=== PATIENT | female | born 1950 | race Caucasian/White ===

== ENCOUNTER 2016-12-29 17:43 | Emergency (ER) | payer OTHER, MEDICARE ==
[2016-12-29 17:49] VITALS: BP 166/64; PULSE 51; TEMP 98; BMI 25.8
--- NOTE | 2016-12-29 18:10 | PDOC ---
History of Present Illness - General History Source: Patient Exam Limitations: No Limitations - History of Present Illness Initial Comments: 12/29/16 18:13 The patient is a 66 year old female, with a significant past medical history of cholestasis, DM, a-fib, HTN, HLD who presents to the emergency department with right 3rd finger pain. The patient reports being an avid bowler and reports last night bowling a lot with the onset of pain when she got home. She reports having decreased ROM in her finger secondary to pain. Patient is right hand dominant. She denies recent fevers, chills, headache or dizziness. She denies recent nausea, vomit, diarrhea or constipation. Allergies: See Nursing Notes Social history: Nonsmoker. Denies EtOH use and recreational drug use. <Jakob Crenshaw - Last Filed: 12/29/16 18:15> <Christophe Kaur - Last Filed: 12/29/16 18:59> - General Chief Complaint: Edema Stated Complaint: SWELLING TO RIGHT 3RD &4TH FINGER Time Seen by Provider: 12/29/16 17:50 Past History <Jakob Crenshaw - Last Filed: 12/29/16 18:15> - Past Medical History Anemia: No Asthma: No Cancer: No Cardiac Disorders: Yes CVA: No COPD: No CHF: No Dementia: No Diabetes: Yes GI Disorders: No Disorders: No HTN: Yes Hypercholesterolemia: Yes Liver Disease: No Seizures: No Thyroid Disease: No - Surgical History Abdominal Surgery: Yes (HERNIA REPAIR) - Immunization History Td Vaccination: No TDAP Vaccination: No Immunization Up to Date: Yes - Psycho/Social/Smoking Cessation Hx Anxiety: No Suicidal Ideation: No Smoking Status: No Smoking History: Never smoked Number of Cigarettes Smoked Daily: 0 Cigars Per Day: 0 Information on smoking cessation initiated: No Hx Alcohol Use: No Drug/Substance Use Hx: No Substance Use Type: None Hx Substance Use Treatment: No <Christophe Kaur - Last Filed: 12/29/16 18:59> - Past Medical History Allergies/Adverse Reactions: Allergies Allergy/AdvReac Type Severity Reaction Status Date / Time peanut Allergy Severe Verified 12/29/16 17:45 penicillin G Allergy Severe Difficulty Verified 12/29/16 17:45 Breathing shellfish derived Allergy Severe Verified 12/29/16 17:45 venom-honey bee Allergy Severe Verified 12/29/16 17:45 [bee venom (honey bee)] Home Medications: Ambulatory Orders Atorvastatin Ca [Lipitor] 10 mg PO HS 08/13/14 Cholecalciferol (Vitamin D3) [Vitamin D3] 4,000 unit PO DAILY 08/13/14 Digoxin [Lanoxin] 125 mcg PO DAILY 08/13/14 FA/Mv,Ca,Iron,Min/Lycopene/Lut [Centrum Tablet] 1 each PO DAILY 08/13/14 Olmesartan/Hydrochlorothiazide [Benicar Hct 40-25 mg Tablet] 1 each PO DAILY 10/26 Pioglitazone HCl [Actos] 30 mg PO DAILY 08/17/15 Amiodarone HCl [Cordarone -] 100 mg PO DAILY #0 08/21/15 Rivaroxaban [Xarelto -] 20 mg PO DAILY #0 08/21/15 Acetaminophen W/ Codeine #3 [Tylenol # 3] 1 - 2 combo PO Q4H PRN #20 tablet MDD 8 12/29/16 Review of Systems - Review of Systems Able to Perform ROS?: Yes Comments:: 12/29/16 18:13 CONSTITUTIONAL: Absent: fever, no chills, no fatigue EYES: Absent: visual changes ENT: Absent: ear pain, no sore throat CARDIOVASCULAR: Absent: chest pain, no palpitations RESPIRATORY: Absent: cough, no SOB GI: Absent: abdominal pain, no nausea, no vomiting, no constipation, no diarrhea GENITOURINARY: Absent: dysuria, no frequency, no hematuria MUSKULOSKELETAL: +finger pain right 3rd. Absent: back pain, no arthralgia, no myalgia SKIN: Absent: rash NEURO: Absent: headache <Jakob Crenshaw - Last Filed: 12/29/16 18:15> *Physical Exam - Vital Signs Last Vital Signs Temp Pulse Resp BP Pulse Ox 98 F 51 L 18 166/64 100 12/29/16 17:44 12/29/16 17:44 12/29/16 17:44 12/29/16 17:44 12/29/16 17:44 - Physical Exam Comments: 12/29/16 18:13 GENERAL: Well-appearing, well-nourished. No apparent distress. HEENT: Normocephalic, atraumatic. PERRL, EOM intact. CARDIOVASCULAR: Normal S1, S2. Regular rate and rhythm. PULMONARY: Clear to auscultation bilaterally. ABDOMEN: Soft, non-distended, non-tender. EXTREMITIES: 3rd finger proximal phalanx swollen, red, and tender over the extensor tendon. No deformity, but the tendon itself is not palpable. Flexetion is intact for both points but extension is lacking. No distal sensory deficits. Good capillary refill. No other signs of trauma to palm or dorsum of the hand or other fingers. SKIN: Warm, dry. No rash NEUROLOGICAL: No focal neurological deficits. <Jakob Crenshaw - Last Filed: 12/29/16 18:15> - Vital Signs Last Vital Signs Temp Pulse Resp BP Pulse Ox 98 F 51 L 18 166/64 100 12/29/16 17:44 12/29/16 17:44 12/29/16 17:44 12/29/16 17:44 12/29/16 17:44 <Christophe Kaur - Last Filed: 12/29/16 18:59> Medical Decision Making - Medical Decision Making 12/29/16 18:36 Patient who was pulling excessively vigorously last night injured her third finger. She is unable to fully straighten it. This suggests an extensor tendon injury or disruption. There is no deformity suggestive of a fracture. X-ray obtained, splint applied, and referred to hand specialist for further treatment. She is made aware that an improperly treated tendon injury results in severe disability and that is very important to her continued function to see a hand specialist and received timely treatment. She seems to understand and agree. 12/29/16 18:59 After splinting, patient is more comfortable, good capillary refill and no distal numbness tingling or pain. Good fingertip motion. Discharged fully ambulatory and in no significant pain or other distress to follow-up with hand specialist in a timely fashion. <Christophe Kaur - Last Filed: 12/29/16 18:59> *DC/Admit/Observation/Transfer - Attestations Scribe Attestion: 12/29/16 18:14 Documentation prepared by Jakob Crenshaw, acting as medical equipment technician for Christophe Cole MD. <Jakob Crenshaw - Last Filed: 12/29/16 18:15> - Discharge Dispostion Admit: No <[email or web address] - Last Filed: 12/29/16 18:59> Diagnosis at time of Disposition: Extensor tendon disruption - Discharge Dispostion Condition at time of disposition: Stable - Prescriptions Prescriptions: Acetaminophen W/ Codeine #3 [Tylenol # 3] 1 - 2 combo PO Q4H PRN #20 tablet MDD 8 PRN Reason: Pain - Referrals Referrals: Cj Stone MD [Staff Physician] - 3 days - Patient Instructions Printed Discharge Instructions: DI for Finger Extensor Tendon Injury Additional Instructions: Rest, ice, pain medication as needed. See hand surgeon as soon as possible for further evaluation. The tendon may have to be repaired surgically to ensure full function. Significant disability and result if healing is not optimal.
== END 2016-12-29 19:04 | disposition home or self-care (01) ==
LOC: FER 17:43
DX: S56.40 Unspecified injury of extensor muscle, fascia and tendon of other and unspecified finger at forearm level (principal); X58.XXXA Exposure to other specified factors, initial encounter; Y93.54 Activity, bowling; Y92.39 Other specified sports and athletic area as the place of occurrence of the external cause; I10 Essential (primary) hypertension; E78.00 Pure hypercholesterolemia, unspecified; E11.9 Type 2 diabetes mellitus without complications; I51.9 Heart disease, unspecified
CPT/HCPCS: 73140-TC-RT; 99281-25

== ENCOUNTER 2017-10-10 04:43 | Emergency (ER) | payer OTHER, MEDICARE ==
[2017-10-10 04:57] VITALS: TEMP 98.4; BMI 27.3
--- NOTE | 2017-10-10 05:04 | PDOC ---
History of Present Illness - General Chief Complaint: Irregular Heart Beat Stated Complaint: ATRIAL FIBRILLATION Time Seen by Provider: 10/10/17 05:02 Past History - Past Medical History Allergies/Adverse Reactions: Allergies Allergy/AdvReac Type Severity Reaction Status Date / Time peanut Allergy Severe Verified 10/10/17 04:45 penicillin G Allergy Severe Difficulty Verified 10/10/17 04:45 Breathing shellfish derived Allergy Severe Verified 10/10/17 04:45 venom-honey bee Allergy Severe Verified 10/10/17 04:45 [bee venom (honey bee)] Home Medications: Ambulatory Orders Atorvastatin Ca [Lipitor] 10 mg PO HS 08/13/14 Cholecalciferol (Vitamin D3) [Vitamin D3] 4,000 unit PO DAILY 08/13/14 FA/Mv,Ca,Iron,Min/Lycopene/Lut [Centrum Tablet] 1 each PO DAILY 08/13/14 Olmesartan/Hydrochlorothiazide [Benicar Hct 40-25 mg Tablet] 1 each PO DAILY 10/26 Pioglitazone HCl [Actos] 30 mg PO DAILY 08/17/15 Amiodarone HCl [Cordarone -] 100 mg PO DAILY #0 08/21/15 Rivaroxaban [Xarelto -] 20 mg PO DAILY #0 08/21/15 Anemia: No Asthma: No Cancer: No Cardiac Disorders: Yes (A FIB) CVA: No COPD: No CHF: No Dementia: No Diabetes: Yes (DIET CONTROLLED) GI Disorders: No Disorders: No HTN: Yes Hypercholesterolemia: Yes Liver Disease: No Seizures: No Thyroid Disease: No - Surgical History Abdominal Surgery: Yes (HERNIA REPAIR) - Immunization History Td Vaccination: No TDAP Vaccination: No Immunization Up to Date: Yes - Suicide/Smoking/Psychosocial Hx Smoking Status: No Smoking History: Never smoked Have you smoked in the past 12 months: No Number of Cigarettes Smoked Daily: 0 Cigars Per Day: 0 Information on smoking cessation initiated: No Hx Alcohol Use: Yes (SOCIAL) Drug/Substance Use Hx: No Substance Use Type: None Hx Substance Use Treatment: No *Physical Exam - Vital Signs Last Vital Signs Temp Pulse Resp BP Pulse Ox 98.4 F 110 H 16 147/61 100 10/10/17 04:53 10/10/17 04:53 10/10/17 04:53 10/10/17 04:53 10/10/17 04:53 *DC/Admit/Observation/Transfer - Referrals Referrals: Oleksandr Solis MD [Primary Care Provider] - - Patient Instructions - Post Discharge Activity
[2017-10-10 05:50] LABS: BASO % 1.2 % (0-2.0); EOS % 1.7 % (0-4.5); HEMATOCRIT 37.6 % (32.4-45.2); HEMOGLOBIN 12.4 GM/dL (10.7-15.3); LYMPH % 20.4 % (8-40); MCH 28.5 pg (25.7-33.7); MEAN CELL VOLUME 86.3 fl (80-96); MEAN PLT VOLUME 9.3 fl (7.5-11.1); MONO % 6.9 % (3.8-10.2); NEUT % 69.8 % (42.8-82.8); PLATELET COUNT 306 K/MM3 (134-434); RBC 4.36 M/mm3 (3.60-5.2); WHITE BLOOD COUNT 9.5 K/mm3 (4.0-10.0)
--- NOTE | 2017-10-10 06:10 | PDOC ---
History of Present Illness - General Chief Complaint: Irregular Heart Beat Stated Complaint: ATRIAL FIBRILLATION Time Seen by Provider: 10/10/17 05:02 History Source: Patient Exam Limitations: No Limitations - History of Present Illness Initial Comments: 10/10/17 06:05 paroxysmal afib maintained on amio and 10a inhibitor presents with irregular HB since 2am no clear instigator Presenting Symptoms: Other (irregular hr) Timing/Duration: reports: constant Severity/Quality: reports: moderate Location: reports: central Chest Pain Radiation: reports: no radiation Activities at Onset: reports: emotional upset, sleep Prior Chest Pain/Cardiac Workup: reports: Other (known pafib) Modifying Factors: improves with: other (amio) Nitro Today/Relief: Yes: provided at home Associated Symptoms: No: Chest Pain/pressure, Diaphoresis, Dizziness, Fever/ chills Past History - Past Medical History Allergies/Adverse Reactions: Allergies Allergy/AdvReac Type Severity Reaction Status Date / Time peanut Allergy Severe Verified 10/10/17 04:45 penicillin G Allergy Severe Difficulty Verified 10/10/17 04:45 Breathing shellfish derived Allergy Severe Verified 10/10/17 04:45 venom-honey bee Allergy Severe Verified 10/10/17 04:45 [bee venom (honey bee)] Home Medications: Ambulatory Orders Atorvastatin Ca [Lipitor] 10 mg PO HS 08/13/14 Cholecalciferol (Vitamin D3) [Vitamin D3] 4,000 unit PO DAILY 08/13/14 FA/Mv,Ca,Iron,Min/Lycopene/Lut [Centrum Tablet] 1 each PO DAILY 08/13/14 Olmesartan/Hydrochlorothiazide [Benicar Hct 40-25 mg Tablet] 1 each PO DAILY 10/26 Pioglitazone HCl [Actos] 30 mg PO DAILY 08/17/15 Amiodarone HCl [Cordarone -] 100 mg PO DAILY #0 08/21/15 Rivaroxaban [Xarelto -] 20 mg PO DAILY #0 08/21/15 Anemia: No Asthma: No Cancer: No Cardiac Disorders: Yes (A FIB) CVA: No COPD: No CHF: No Dementia: No Diabetes: Yes (DIET CONTROLLED) GI Disorders: No Disorders: No HTN: Yes Hypercholesterolemia: Yes Liver Disease: No Seizures: No Thyroid Disease: No - Surgical History Abdominal Surgery: Yes (HERNIA REPAIR) - Immunization History Td Vaccination: No TDAP Vaccination: No Immunization Up to Date: Yes - Suicide/Smoking/Psychosocial Hx Smoking Status: No Smoking History: Never smoked Have you smoked in the past 12 months: No Number of Cigarettes Smoked Daily: 0 Cigars Per Day: 0 Information on smoking cessation initiated: No Hx Alcohol Use: Yes (SOCIAL) Drug/Substance Use Hx: No Substance Use Type: None Hx Substance Use Treatment: No Cardiac Specific PMH - Complaint Specific PMHX Pacemaker: No Review of Systems - Review of Systems Able to Perform ROS?: Yes All Other Systems: Reviewed and Negative *Physical Exam - Vital Signs Last Vital Signs Temp Pulse Resp BP Pulse Ox 98.4 F 70 16 113/53 100 10/10/17 04:53 10/10/17 06:06 10/10/17 06:06 10/10/17 06:06 10/10/17 04:53 - Physical Exam General Appearance: Yes: Nourished HEENT: positive: Normal Voice Neck: positive: Supple Respiratory/Chest: positive: Lungs Clear Cardiovascular: positive: Irregularly Irregular Gastrointestinal/Abdominal: negative: Tender Lymphatic: negative: Adenopathy Musculoskeletal: positive: Normal Inspection Extremity: positive: Normal Capillary Refill Integumentary: positive: Normal Color Neurologic: positive: Alert ED Treatment Course - LABORATORY CBC & Chemistry Diagram: 10/10/17 05:15 10/10/17 05:15 - ADDITIONAL ORDERS Additional order review: Laboratory Results 10/10/17 10/10/17 05:15 05:15 Sodium 137 Potassium 4.1 Chloride 101 Carbon Dioxide 25 Anion Gap 11 BUN 39 H Creatinine 1.8 H Random Glucose 131 H Calcium 8.6 Phosphorus 3.4 Magnesium 1.8 Troponin I < 0.02 10/10/17 05:15 RBC 4.36 MCV 86.3 MCHC 33.0 RDW 15.0 MPV 9.3 Neutrophils % 69.8 Lymphocytes % 20.4 Monocytes % 6.9 Eosinophils % 1.7 Basophils % 1.2 - Consult/PCP Case discussed with consulting physician: Oleksandr Solis (paged [phone]) Medical Decision Making - Medical Decision Making 10/10/17 06:[address] depression 1, 2, v3-v6 a/p afib with rvr on home ac (10a inhibitor) spontaneoulsy cardioverted in ED repeat EKG sinus at 56 without ischemic findings. repeat troponin at 6 hours *DC/Admit/Observation/Transfer Diagnosis at time of Disposition: Atrial fibrillation with rapid ventricular response - Referrals Referrals: Oleksandr Solis MD [Primary Care Provider] - - Patient Instructions - Post Discharge Activity
[2017-10-10 06:17] LABS: ANION GAP 11 (8-16); BLOOD UREA NITROGEN 39 mg/dL (7-18); CALCIUM 8.6 mg/dL (8.5-10.1); CHLORIDE 101 mmol/L (98-107); CO2 25 mmol/L (21-32); CREATININE 1.8 mg/dL (0.55-1.02); GLUCOSE,RANDOM 131 mg/dL (74-106); MAGNESIUM 1.8 mg/dL (1.8-2.4); PHOSPHOROUS 3.4 mg/dL (2.5-4.9); POTASSIUM 4.1 mmol/L (3.5-5.1); SODIUM 137 mmol/L (136-145)
[2017-10-10] MEDS ORDERED: SODIUM CHLORIDE 0.9% 1000 ML INFUS.BAG IV ONE (06:51)
[2017-10-10 09:26] VITALS: PULSE 56
--- NOTE | 2017-10-10 11:07 | PDOC ---
*Physical Exam - Vital Signs Last Vital Signs Temp Pulse Resp BP Pulse Ox 98.4 F 56 L 16 134/49 97 10/10/17 04:53 10/10/17 09:25 10/10/17 09:25 10/10/17 09:25 10/10/17 09:25 ED Treatment Course - LABORATORY CBC & Chemistry Diagram: 10/10/17 05:15 10/10/17 05:15 - ADDITIONAL ORDERS Additional order review: Laboratory Results 10/10/17 10/10/17 05:15 05:15 Sodium 137 Potassium 4.1 Chloride 101 Carbon Dioxide 25 Anion Gap 11 BUN 39 H Creatinine 1.8 H Random Glucose 131 H Calcium 8.6 Phosphorus 3.4 Magnesium 1.8 Troponin I < 0.02 10/10/17 05:15 RBC 4.36 MCV 86.3 MCHC 33.0 RDW 15.0 MPV 9.3 Neutrophils % 69.8 Lymphocytes % 20.4 Monocytes % 6.9 Eosinophils % 1.7 Basophils % 1.2 - Medications Given in the ED: ED Medications Discontinued Medications Generic Name Dose Route Start Last Admin Trade Name Freq PRN Reason Stop Dose Admin Sodium Chloride 500 ml 10/10/17 06:51 10/10/17 06:56 Normal Saline - IV 10/10/17 06:52 500 ml ONCE ONE Administration - Consult/PCP Case discussed with consulting physician: Oleksandr Solis (paged [phone]) Medical Decision Making - Medical Decision Making 10/10/17 11:48 pt signed out to me by Dr. Garland as pending repeat troponin after an episode of paroxsymal a fib. Patient sponataneously converted and now feels better. Is already anticoagulated with xarelto and is on amiodarone. Case discussed with Dr. Solis, who agrees with discharging the patient. She will increase her amiodarone to 200 mg and follow up with him. *DC/Admit/Observation/Transfer Diagnosis at time of Disposition: Atrial fibrillation with rapid ventricular response - Discharge Dispostion Disposition: HOME Condition at time of disposition: Good Admit: No - Referrals Referrals: Oleksandr Solis MD [Primary Care Provider] - - Patient Instructions Additional Instructions: I discussed your care with Dr. Solis. He asked me to remind you that it is very important for you to make an appointment with EP to discuss changing your medications or an ablation for your A fib. He also recommends that you increase your amiodarone to 200 mg. Continue the xarelto. Call Dr. Solis's office tomorrow to make an appt. Please return to the ED for recurrent palpitations, chest pain or shortness of breath, passing out, other new or changing symptoms. Make sure that you follow up with your primary doctor as well as Dr. Solis. - Post Discharge Activity
[2017-10-10 11:58] VITALS: BP 136/59
--- NOTE | 2017-10-13 15:00 | EKG ---
Test Reason : Blood Pressure : / mmHG Vent. Rate : 109 BPM Atrial Rate : 105 BPM P-R Int : 000 ms QRS Dur : 088 ms QT Int : 364 ms P-R-T Axes : 000 006 042 degrees QTc Int : 490 ms ATRIAL FIBRILLATION WITH RAPID VENTRICULAR RESPONSE ST depression in II, aVF, V4-6, consider ischemia ABNORMAL ECG WHEN COMPARED WITH ECG OF 21-JUN-2011 15:36, ATRIAL FIBRILLATION HAS REPLACED SINUS RHYTHM VENT. RATE HAS INCREASED BY [address] NOW DEPRESSED IN INFERIOR LEADS ST NOW DEPRESSED IN V4-6 Confirmed by MARCUS GRIFFITHS MD ([id number]) on 10/13/2017 2:59:57 PM Referred By: MD MICHAELS Confirmed By:MARCUS GRIFFITHS MD
--- NOTE | 2017-10-13 15:01 | EKG ---
Test Reason : Blood Pressure : / mmHG Vent. Rate : 056 BPM Atrial Rate : 056 BPM P-R Int : 188 ms QRS Dur : 084 ms QT Int : 460 ms P-R-T Axes : 031 000 041 degrees QTc Int : 443 ms POOR DATA QUALITY, INTERPRETATION MAY BE ADVERSELY AFFECTED SINUS BRADYCARDIA OTHERWISE NORMAL ECG WHEN COMPARED WITH ECG OF 10-OCT-2017 04:50, SINUS RHYTHM HAS REPLACED ATRIAL FIBRILLATION VENT. RATE HAS DECREASED BY [address] NO LONGER DEPRESSED IN INFERIOR LEADS ST NO LONGER DEPRESSED IN V4-6 Confirmed by MARCUS GRIFFITHS MD ([id number]) on 10/13/2017 3:01:03 PM Referred By: MD MICHAELS Confirmed By:MARCUS GRIFFITHS MD
== END 2017-10-10 12:05 | disposition home or self-care (01) ==
LOC: FER 04:43
PROC: 3E0337Z Introduction of Electrolytic and Water Balance Substance into Peripheral Vein, Percutaneous Approach (ICD-10-PCS; principal; 2017-10-10)
DX: I48.91 Unspecified atrial fibrillation (principal); I10 Essential (primary) hypertension; E78.00 Pure hypercholesterolemia, unspecified
CPT/HCPCS: 36415; 80048; 82550; 83735; 84100; 84484; 85025; 93005; 99284-25

== ENCOUNTER 2019-07-28 10:17 | Emergency (ER) | payer OTHER, MEDICARE ==
--- NOTE | 2019-07-28 10:30 | PDOC ---
Attending Attestation - Resident Resident Name: CarlosEthel - ED Attending Attestation I have performed the following: I have examined & evaluated the patient, The case was reviewed & discussed with the resident, I agree w/resident's findings & plan, Exceptions are as noted - HPI HPI: 07/28/19 11:03 Sudden pain in the right Achilles tendon while bowling. Patient bowls twice a week, usually without injury. No unusual activity or injury now. - Physicial Exam PE: 07/28/19 11:04 Physical exam reveals swelling at the attachment of the Achilles to the calcaneus. There is mild to moderate tenderness at this site as well. There is no disruption of the Achilles palpable, and there is full plantar flexion against resistance. Pulses are full. No sensory or motor deficits. - Medical Decision Making 07/28/19 11:05 Assessment: Achilles tendinitis. Rule out partial tear/avulsion. Plan: X-ray and further orthopedic management depending on results. 07/28/19 11:35 X-ray shows no acute fracture, including avulsion. 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 Recommended rest ice elevation. Use of anti-inflammatories as limited due to Xarelto therapy. Heel cushion orthotic, crutches with partial weightbearing until pain subsides, and to minimize risk of rupture. Follow-up orthopedist.
[2019-07-28 10:34] VITALS: BP 160/61; PULSE 58; TEMP 98.3; BMI 30.4
--- NOTE | 2019-07-28 11:09 | PDOC ---
History of Present Illness - General Chief Complaint: Pain Stated Complaint: rt heel pain Time Seen by Provider: 07/28/19 10:24 - History of Present Illness Initial Comments: 07/28/19 10:59 HPI: 69 y/o F with hx of AFib on xarelto, HLD presenting with 3 days of right heel pain. She describes sudden pain in her right heel while bowling. Denies any inciting trauma, fall or event. She felt the pain in her first game and the pain worsened throughout the night. Pain is non-radiating and worse with ambulation or pressure. She attempted ice, elevation, motrin without alleviation of pain. Denies numbness, tingling, decreased ROM. PMHx: as noted above ROS: as noted SHx: Denies tobacco use; social alcohol use; no rec drugs Allergies: NKDA ROS: GENERAL/CONSTITUTIONAL: No fever or chills. No weakness. HEAD, EYES, EARS, NOSE AND THROAT: No change in vision. No ear pain or discharge. No sore throat. CARDIOVASCULAR: No chest pain or shortness of breath RESPIRATORY: No cough, wheezing, or hemoptysis. GASTROINTESTINAL: No nausea, vomiting, diarrhea or constipation. GENITOURINARY: No dysuria, frequency, or change in urination. MUSCULOSKELETAL: r foot pain. SKIN: No rash NEUROLOGIC: No headache, vertigo, loss of consciousness, or change in strength/ sensation. ENDOCRINE: No increased thirst. No abnormal weight change HEMATOLOGIC/LYMPHATIC: No anemia, easy bleeding, or history of blood clots. ALLERGIC/IMMUNOLOGIC: No hives or skin allergy. PE: GENERAL: Awake, alert, and fully oriented, no acute distress HEAD: No signs of trauma, normocephalic, atraumatic EYES: EOMI, sclera anicteric, conjunctiva clear ENT: Auricles normal inspection, hearing grossly normal, nares patent, oropharynx clear without exudates. Moist mucosa NECK: Normal ROM, no lymphadenopathy LUNGS: No increased work of breathing, symmetrical chest rise, clear to auscultation bilaterally, no wheezes, crackles or rhonchi HEART: Regular rate and rhythm, normal S1 and S2, no murmurs, peripheral pulses 2+ and equal bilaterally. ABDOMEN: Soft, nondistended, nontender, normoactive bowel sounds. No guarding, no rebound. No masses. No CVAT EXTREMITIES: pedal edema R>L, inferior achilles edema, achilles ttp, calcaneus without tenderness, sensation intact, 5/5 str, distal pulses intact, negative garcia squeeze test NEUROLOGICAL: Cranial nerves II through XII grossly intact. Normal speech, normal gait, no focal sensorimotor deficits SKIN: Warm, Dry, normal turgor, no rashes or lesions noted Past History - Past Medical History Allergies/Adverse Reactions: Allergies Allergy/AdvReac Type Severity Reaction Status Date / Time peanut Allergy Severe Verified 07/28/19 10:20 penicillin G Allergy Severe Difficulty Verified 07/28/19 10:20 Breathing shellfish derived Allergy Severe Verified 07/28/19 10:20 venom-honey bee Allergy Severe Verified 07/28/19 10:20 [bee venom (honey bee)] Home Medications: Ambulatory Orders Cholecalciferol (Vitamin D3) [Vitamin D3] 4,000 unit PO DAILY 08/13/14 FA/Mv,Ca,Iron,Min/Lycopene/Lut [Centrum Tablet] 1 each PO DAILY 08/13/14 Olmesartan/Hydrochlorothiazide [Benicar Hct 40-25 mg Tablet] 1 each PO DAILY 10/26 Pioglitazone HCl [Actos] 30 mg PO DAILY 08/17/15 Amiodarone HCl [Cordarone -] 100 mg PO DAILY #0 08/21/15 Rivaroxaban [Xarelto -] 20 mg PO DAILY #0 08/21/15 Anemia: No Asthma: No Cancer: No Cardiac Disorders: Yes (A FIB) CVA: No COPD: No CHF: No Dementia: No Diabetes: Yes (DIET CONTROLLED) GI Disorders: No Disorders: No HTN: Yes Hypercholesterolemia: Yes Liver Disease: No Seizures: No Thyroid Disease: No - Surgical History Abdominal Surgery: Yes (HERNIA REPAIR) - Immunization History Td Vaccination: No TDAP Vaccination: No Immunization Up to Date: Yes - Psycho Social/Smoking Cessation Hx Smoking Status: No Smoking History: Never smoked Have you smoked in the past 12 months: No Number of Cigarettes Smoked Daily: 0 Cigars Per Day: 0 Hx Alcohol Use: Yes (SOCIAL) Drug/Substance Use Hx: No Substance Use Type: None Hx Substance Use Treatment: No *Physical Exam - Vital Signs Last Vital Signs Temp Pulse Resp BP Pulse Ox 98.3 F 58 L 20 160/61 96 07/28/19 10:18 07/28/19 10:18 07/28/19 10:18 07/28/19 10:18 07/28/19 10:18 ED Treatment Course - RADIOLOGY Radiology Studies Ordered: Category Date Time Status FOOT-RIGHT [RAD] Stat Radiology 07/28/19 10:54 Ordered Medical Decision Making - Medical Decision Making 07/28/19 11:09 69 y/o F with hx of AFib on xarelto, HLD presenting with 3 days of right heel pain. PE notable for ttp at inferior portion of achilles with edema noted; calcaneous without ttp, negative garcia squeeze test. -foot xr 07/28/19 12:08 XR with no acute pathology discussed with patient will treat conservatively with tylenol, NWB, ice, elevation and refer for ortho followup Discharge - Discharge Information Problems reviewed: Yes Clinical Impression/Diagnosis: Achilles tendon pain Heel pain Qualifiers: Laterality: right Qualified Code(s): M79.671 - Pain in right foot Condition: Stable Disposition: HOME - Follow up/Referral Referrals: Andrez Dunbar DO [Staff Physician] - Jerry Ayala DO [Staff Physician] - - Patient Discharge Instructions Additional Instructions: Please do not bear weight on right heel; recommending 1/2 inch or i/4 inch heel cushion from pharmacy Rest and maintain elevation at home Ice as needed Take tylenol for pain Followup with Dr Dunbar or Dr Ayala for orthopedic evaluation - Post Discharge Activity
== END 2019-07-28 12:34 | disposition home or self-care (01) ==
LOC: FER 10:17
DX: M76.61 Achilles tendinitis, right leg (principal); I48.91 Unspecified atrial fibrillation; Z79.01 Long term (current) use of anticoagulants; I10 Essential (primary) hypertension; E78.5 Hyperlipidemia, unspecified; E11.9 Type 2 diabetes mellitus without complications; Z91.010 Allergy to peanuts; Z91.013 Allergy to seafood; Z88.0 Allergy status to penicillin; Z91.030 Bee allergy status
CPT/HCPCS: 73630-TC-RT-FY; 99281-25

== ENCOUNTER 2023-02-12 21:25 | Emergency (ER) | payer OTHER, MEDICARE ==
[2023-02-12 21:34] VITALS: BP 190/77; PULSE 62; RESP 16; TEMP 97.5; BMI 22.8
== END 2023-02-12 23:30 | disposition home or self-care (01) ==
LOC: FER 21:25
DX: R00.2 Palpitations (principal); R06.02 Shortness of breath
CPT/HCPCS: 36415; 84484; 93005; 99284-25

== ENCOUNTER 2024-01-28 09:10 | Emergency (ER) | payer OTHER, MEDICARE ==
[2024-01-28 09:22] VITALS: BP 106/67; PULSE 88; RESP 16; TEMP 98; BMI 28.8
== END 2024-01-28 10:45 | disposition home or self-care (01) ==
LOC: FER 09:10
DX: S93.602A Unspecified sprain of left foot, initial encounter (principal); W01.0XXA Fall on same level from slipping, tripping and stumbling without subsequent striking against object, initial encounter
CPT/HCPCS: 73610-TC-LT-FY; 73630-TC-LT; 99283-25

== ENCOUNTER 2024-03-06 19:32 | Emergency (ER) | payer OTHER, MEDICARE ==
[2024-03-06] MEDS ORDERED: dilTIAZem HCL 30 MG TABLET ONE (19:40)
[2024-03-06] MEDS: dilTIAZem HCL 60 MG TABLET PO ONE (19:45)
[2024-03-06 19:51] VITALS: RESP 20; BMI 29.2
[2024-03-06 20:43] LABS: HEMATOCRIT 38.1 % (32.4-45.2); HEMOGLOBIN 12.6 G/dL (10.7-15.3); MCH 28.9 pg (25.7-33.7); MCHC 33.1 g/dl (32.0-36.0); MEAN CELL VOLUME 87.4 fl (80-96); MEAN PLT VOLUME 8.2 fl (7.5-11.1); PLATELET COUNT 249.6 10^3/uL (134-434); RBC 4.36 10^6/uL (3.60-5.2); WHITE BLOOD COUNT 7.6 10^3/uL (4.0-10.8)
[2024-03-06 21:05] LABS: ALBUMIN 4.5 g/dl (3.4-5.0); BILIRUBIN,TOTAL 0.7 mg/dl (0.2-1); CREATININE 2.1 mg/dl (0.6-1.3); MAGNESIUM 1.8 mg/dL (1.8-2.4); TOT PROT 7.4 g/dl (6.4-8.2)
[2024-03-06 21:31] VITALS: BP 112/58; PULSE 84; TEMP 98.5
[2024-03-06] MEDS: SODIUM CHLORIDE 0.9% 500 ML INFUS.BAG IV ONE (21:44)
[2024-03-06] MEDS: SODIUM CHLORIDE 1,000 ML IV ONE (21:45)
== END 2024-03-06 22:51 | disposition home or self-care (01) ==
LOC: FER 19:32
DX: I48.91 Unspecified atrial fibrillation (principal)
CPT/HCPCS: 36415; 80053; 82550; 82553; 83735; 84100; 84484; 85027; 93005; 99284-25